=== PATIENT | male | born 1960 | race Caucasian/White ===

== ENCOUNTER 2016-12-03 11:31 | Outpatient (CLI) | payer OTHER ==
[~2016-12-03 11:31] MED LIST: ALBUTEROL HFA60 DOSE IN; CYCLOBENZAPRINE10 MG PO; MULTIPLE VITAMIN PO; NEURONTIN300 MG PO; SPIRIVA18 MCG INH
--- NOTE | 2016-12-03 15:40 | DIAGNOSTIC IMAGING REPORT ---
PROCEDURE: XR MAJOR JT INJ OR ASPIRATION INDICATION: OSTEOARTHIRITIS RT HIP TECHNIQUE: The patient was advised of the usual risks and complications including infection, bleeding, and allergy. Supine position. Following sterile preparation and 1% lidocaine anesthetic, fluoroscopic guidance (2.0 minutes, 1290.68 mGy) was utilized to place a 22- gauge spinal needle into the anterolateral aspect of the right hip joint. Intraarticular position was confirmed with 2 mL of Isovue 200 contrast material. Subsequently, a 6 mL solution (2 mL 40 mg/mL Kenalog, 2 mL 1% lidocaine, 2 mL 0.5% Marcaine) was infused and the needle was withdrawn. COMPARISON: Comparison is made to fluoroscopic guided therapeutic injection of the right hip on 07/18/2016. FINDINGS: Three AP views. Confirmation of intraarticular injection. Moderate to severe osteoarthritic changes of the right hip joint The patient tolerated the procedure reasonably well and was discharged home in satisfactory condition with instructions to resume routine activity the following day, and to call for any untoward symptoms (increasing pain/swelling). IMPRESSION: 1. Successful fluoroscopically guided therapeutic injection of the right hip joint.
== END 2016-12-03 23:00 ==
LOC: XR SRH 11:31
PROC: BQ101ZZ Fluoroscopy of Right Hip using Low Osmolar Contrast (ICD-10-PCS; principal; 2016-12-03)
PROC: 3E0U33Z Introduction of Anti-inflammatory into Joints, Percutaneous Approach (ICD-10-PCS; principal; 2016-12-03)
DX: M16.11 Unilateral primary osteoarthritis, right hip (principal)
CPT/HCPCS: 80222; 82445